=== PATIENT | female | born 1955 | race Hispanic/Latino ===

== ENCOUNTER 2024-07-17 19:35 | Emergency (ER) | payer MEDICARE ==
[~2024-07-17] VITALS: Ht 157.5 cm; Wt 54.4 kg
[2024-07-17 19:35] VITALS: PULSE 64; RESP 16; TEMP 98.6
[~2024-07-17 19:35] MED LIST: NORVASC2.5 MG PO
[2024-07-17 20:59] VITALS: BP 162/60; PULSE 81; RESP 17; O2SAT 97
== END 2024-07-17 21:02 | disposition home or self-care (01) ==
LOC: ER 19:45
DX: M25.511 Pain in right shoulder (principal)
CPT/HCPCS: 99283